=== PATIENT | female | born 1975 | race Caucasian/White ===

== ENCOUNTER → 2017-11-09 | Emergency (ER) | payer OTHER ==
[~2017-11-09] MED LIST: ERYTHROMYCIN 0.5% 1 GM OPHT.OINT LEFTEYE ONE; FLUORESCEIN SODIUM 1 MG STRIP OP ONE; PROPARACAINE 0.5% 15 ML OPHT DROP ONE; PROPARACAINE 0.5% 15 ML OPHT DROP OP ONE
--- NOTE | 2017-11-09 23:29 | EDPHY ---
H & P Stated Complaint: L EYE LIGHT SENSITIVITY Time Seen by Provider: 11/09/17 22:48 HPI/ROS: Chief Complaint: Eye pain HPI: 42-year-old woman with a history of chronic keratitis who wears contact lenses for this is presenting with left eye irritation and photosensitivity with started about 11:00 a.m. This morning. Patient wears daily contact lenses. Patient states that she fell asleep last night with a contact lens in and got a 3 morning remove it. This morning she put a new 1 in. About 11:00 a.m. She began feeling increasing irritation and increased photosensitivity in her left eye. This is continue throughout the day. She did remove her contact lens without any significant relief. No discharge from her eye. She is continuing to have some pain with light shining in both her eyes. No vision changes. No headache. No falls or injuries. ROS: 10 systems were reviewed and were negative except those elements noted in the HPI. 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 Skin: No rash - Personal History LMP (Females 10-55): Now Current Tetanus Diphtheria and Acellular Pertussis (TDAP): Yes - Medical/Surgical History Hx Asthma: No Hx Chronic Respiratory Disease: No Hx Diabetes: No Hx Cardiac Disease: No Hx Renal Disease: No Hx Cirrhosis: No Hx Alcoholism: No Hx HIV/AIDS: No Hx Splenectomy or Spleen Trauma: No Other PMH: DENIES - Social History Smoking Status: Never smoked Constitutional: Initial Vital Signs Temperature (C) 36.7 C 11/09/17 22:24 Heart Rate 75 11/09/17 22:24 Respiratory Rate 16 11/09/17 22:24 Blood Pressure 117/66 11/09/17 22:24 O2 Sat (%) 94 11/09/17 22:24 O2 Delivery Mode Room Air Allergies/Adverse Reactions: No Known Allergies Allergy (Unverified 11/09/17 22:28) Home Medications: Medication Instructions Recorded NK [No Known Home Meds] 11/09/17 Medical Decision Making ED Course/Re-evaluation: 42-year-old woman with a corneal abrasion likely secondary to Re please see her contact lens this morning. Will start her on erythromycin eye ointment. She does have some mild pain with consensual light reflex. Will refer her to Ophthalmology tomorrow for recheck to rule out iritis. She has not have any other overt findings suggestive of iritis at this time. - Data Points Medications Given: Discontinued Medications Fluorescein Sodium (Bioglo) 1 mg OP EDNOW ONE Stop: 11/09/17 23:00 Last Admin: 11/09/17 23:02 Dose: 1 mg Proparacaine HCl (Alcaine 0.5%) 1 drops OP EDNOW ONE Stop: 11/09/17 22:59 Last Admin: 11/09/17 23:01 Dose: 1 drop Departure - Departure Disposition: Home, Routine, Self-Care Clinical Impression: Corneal abrasion Condition: Good Instructions: Corneal Abrasion (ED) Additional Instructions: Apply the erythromycin eye ointment every 4 hr while awake. Follow up with Ophthalmology tomorrow. Call for next available appointment. Referrals: Susie Lay MD [Medical Doctor] - As per Instructions
[2017-11-09 23:48] VITALS: BP 117/66
== END | disposition home or self-care (01) ==
DX: S05.02XA Injury of conjunctiva and corneal abrasion without foreign body, left eye, initial encounter (principal); H18.822 Corneal disorder due to contact lens, left eye